=== PATIENT | female | born 1980 | race Caucasian/White ===

== ENCOUNTER 2023-07-02 13:18 | Emergency (ER) | payer OTHER ==
[~2023-07-02] VITALS: Ht 160 cm; Wt 72.1 kg
[2023-07-02 13:31] VITALS: BP 99/70; PULSE 72; RESP 16; TEMP 98.1; O2SAT 99
[2023-07-02] MEDS: KETOROLAC 30 MG/ML VIAL IM ONE (14:09)
[2023-07-02] MEDS ORDERED: IBUP-2213 PO (14:56)
== END 2023-07-02 15:00 | disposition home or self-care (01) ==
LOC: MED 13:18
DX: M76.52 Patellar tendinitis, left knee (principal); M25.762 Osteophyte, left knee; Z79.899 Other long term (current) drug therapy
CPT/HCPCS: 73562; 81002; 81025; 96372; 99283; J1885